=== PATIENT | male | born 1945 | race Caucasian/White ===

== ENCOUNTER 2016-05-05 13:24 | Emergency (ER) | payer OTHER ==
[2016-05-05 13:54] VITALS: RESP 16; TEMP 97.3
--- NOTE | 2016-05-05 14:08 | CPEKG ---
Heart Rate: 81 RR Interval: 741 P-R Interval: 168 QRSD Interval: 140 QT Interval: 400 QTC Interval: 465 P [place]: 37 QRS [place]: -63 T Wave [place]: 79 EKG Severity - ABNORMAL ECG - EKG Impression: ATRIAL-PACED COMPLEXES EKG Impression: LEFT ATRIAL ABNORMALITY EKG Impression: RIGHT BUNDLE BRANCH BLOCK EKG Impression: ANTEROLATERAL INFARCT, RECENT Electronically Signed By: Kerri Reinoso 05-May-2016 20:03:44
--- NOTE | 2016-05-05 14:25 | EDPHY ---
H & P Time Seen by Provider: 05/05/16 14:04 HPI/ROS: CHIEF COMPLAINT: I was in AFib HISTORY OF PRESENT ILLNESS: Patient is a 70-year-old male with a history of coronary artery disease, status post CABG x4 on 01/09/2016. He has had a history of intermittent atrial fibrillation in undergone ablation x2. Once for atrial fibrillation once for ventricular tachycardia. Patient feels as though he was in atrial fibrillation starting at around 3:00 p.m. yesterday. He felt a fluttering in his chest and mild discomfort. This persisted until he was checked in triage. At that time he states I came out of AFib. He has no complaints at this time. No chest pain or shortness of breath. No leg pain or swelling. He has been compliant with his medications. REVIEW OF SYSTEMS: My complete review of systems is negative except as mentioned in the HPI. Past Medical/Surgical History: Includes atrial fibrillation, ventricular tachycardia, coronary artery disease, dilated cardiomyopathy, left ventricular aneurysm, hyperlipidemia, hypertension , acute kidney injury Past surgical history: Includes ablation x2, CABG x4, AICD placement Social history: Patient is . He is here with his . The family history: Noncontributory Smoking Status: Former smoker Physical Exam: Vitals noted. 116/78, 97, 16. Repeat vital signs 123/85, 72, 16 GENERAL: Well-appearing, in no acute distress, alert. HEENT: Eyes normal to inspection, normal pharynx, no signs of dehydration. NECK: No thyromegaly, no lymphadenopathy, supple. RESPIRATORY: Clear to auscultation bilaterally, no rales, rhonchi or wheezing. CVS: Regular rate and rhythm, no rubs, murmurs, or gallops. ABDOMEN: Soft, nontender, nondistended, no organomegaly. BACK: Normal to inspection, no CVA tenderness. SKIN: Normal color, no rash, warm, dry. No pallor. EXTREMITIES: No pedal edema, no calf tenderness, no Homans sign or cords, no joint swelling. NEURO/PSYCH: Alert and oriented, normal mood and affect, normal motor sensory exam. No obvious cranial nerve deficit. Constitutional: Initial Vital Signs Temperature (C) 36.3 C 05/05/16 13:51 Heart Rate 97 05/05/16 13:51 Respiratory Rate 16 05/05/16 13:51 Blood Pressure 116/78 05/05/16 13:51 O2 Sat (%) 94 05/05/16 13:51 O2 Delivery Mode Room Air Allergies/Adverse Reactions: Penicillins Allergy (Severe, Verified 05/05/16 13:50) Anaphylaxis Home Medications: Medication Instructions Recorded Aspirin [Aspirin 81mg (*)] 81 mg PO DAILY 01/06/16 Cholecalciferol Vit D3 [Vitamin D3 1,000 units PO DAILY 01/06/16 (*)] Cyanocobalamin [Vitamin B12 (*)] 1,000 mcg PO DAILY 01/06/16 Herbals/Supplements -Info Only 1 ea PO DAILY 01/06/16 Multivitamins [Multivitamin (*)] 1 each PO DAILY 01/06/16 [place]-3 Fatty Acids/Fish Oil 1 each PO DAILY 01/06/16 [[place] 3 1,000 mg Softgel] Acetaminophen [Tylenol 325mg (*)] 325 - 650 mg PO Q4HRS PRN #0 tab 01/17/16 Furosemide [Lasix 80 MG (*)] 80 mg PO BID@0900,1500 #60 tab 01/17/16 Metoprolol Succinate Xr [Toprol Xl 50 mg PO DAILY #30 tab 01/17/16 50 mg (*)] Potassium Cl [Klor-Con 20 meq (*)] 20 meq PO BID #60 tab 01/17/16 Warfarin Sodium 2.5 mg PO DAILY AT 4PM #60 tablet 01/17/16 Medical Decision Making ED Course/Re-evaluation: In the emergency department I discussed possible etiologies with the patient. I answered all his questions. I reviewed the patient's previous medical records. I paged Dr. Norwood. [employer] was called to interrogate the patient' s pacer/AICD. Laboratory studies and EKG were ordered. EKG: Atrial paced complexes at 81. Right bundle branch block. I again paged Dr. Alex Norwood. I attempted to call his cell phone [phone]. I also called [phone]. The patient had elevated D-dimer. Patient was also noted to have an elevated troponin. I discussed these results with the patient and answered all his questions. CT angiogram was ordered. Still awaiting interrogation of the patient's pacer/AICD I subsequently spoke with Dr. Kiana clay on-call for Dr. Norwood. She agrees with the plan for admission. 1500: I discussed case with Dr. Gutiérrez. He agrees to admit the patient. Patient is aware the plan. CT angiogram of the chest: Please refer the dictated report by Dr. Sarath Vega. No acute disease noted. I discussed the results with the patient. I answered all his questions. On recheck the patient had no complaints. No chest pain or shortness of breath. 17 30: I discussed case with Dr. Norwood. He came to the emergency department and evaluated the patient. He assumed care. He discharged the patient from the emergency department. He requested that I DC the patient from the [employer] system. This was completed. Patient is aware the plan. The patient was given warnings prior to leaving. Differential Diagnosis: My differential includes but is not limited to ACS, acute MT, atrial fibrillation, ventricular tachycardia, pulmonary embolus, electrolyte abnormality, sugar abnormality, cardiomyopathy, dissection, aneurysm - Data Points Laboratory Results: Laboratory Results 05/05/16 14:28 05/05/16 14:28 05/05/16 14:28 WBC 8.60 10^3/uL (3.80-9.50) RBC 5.03 10^6/uL (4.40-6.38) Hgb 14.4 g/dL (13.7-17.5) Hct 43.6 % (40.0-51.0) MCV 86.7 fL (81.5-99.8) MCH 28.6 pg (27.9-34.1) MCHC 33.0 g/dL (32.4-36.7) RDW 16.4 H % (11.5-15.2) Plt Count 252 10^3/uL (150-400) MPV 9.2 fL (8.7-11.7) Neut % (Auto) 66.0 % (39.3-74.2) Lymph % (Auto) 22.6 % (15.0-45.0) [place]ner % (Auto) 8.8 % (4.5-13.0) Eos % (Auto) 2.0 % (0.6-7.6) Baso % (Auto) 0.3 % (0.3-1.7) Nucleat RBC Rel Count 0.0 % (0.0-0.2) Absolute Neuts (auto) 5.67 10^3/uL (1.70-6.50) Absolute Lymphs (auto) 1.94 10^3/uL (1.00-3.00) Absolute Monos (auto) 0.76 10^3/uL (0.30-0.80) Absolute Eos (auto) 0.17 10^3/uL (0.03-0.40) Absolute Basos (auto) 0.03 10^3/uL (0.02-0.10) Absolute Nucleated RBC 0.00 10^3/uL (0-0.01) Immature Gran % 0.3 % (0.0-1.1) Immature Gran # 0.03 10^3/uL (0.00-0.10) PT 24.5 H SEC (12.0-15.0) INR 2.19 H (0.83-1.16) APTT 37.1 SEC (23.0-38.0) D-Dimer 0.74 H ug/mLFEU (0.00-0.50) Sodium 142 mEq/L (134-144) Potassium 4.9 mEq/L (3.5-5.2) Chloride 108 mEq/L (97-110) Carbon Dioxide 26 mEq/l (22-31) Anion Gap 8 mEq/L (8-16) BUN 14 mg/dL (7-23) Creatinine 1.0 mg/dL (0.7-1.3) Estimated GFR > 60 Glucose 117 H mg/dL (70-100) Calcium 9.0 mg/dL (8.5-10.4) Troponin I 0.160 H ng/mL (0-0.034) NT-Pro-B Natriuret Pep Pending Departure - Departure Disposition: Home, Routine, Self-Care Clinical Impression: Elevated troponin Atrial fibrillation Qualifiers: Atrial fibrillation type: paroxysmal Qualifier Code: (I48.0) Paroxysmal atrial fibrillation Chest pain Qualifiers: Chest pain type: other chest pain Qualifier Code: (R07.89) Other chest pain Condition: Good
[2016-05-05 14:34] LABS: % IMMATURE GRANULYOCYTES 0.3 % (0.0-1.1); ABSOLUTE IMMATURE GRANULOCYTES 0.03 10^3/uL (0.00-0.10); ADD DIFF? NO; ADD MORPH? NO; ADD SCAN? NO; ATYPICAL LYMPHOCYTE FLAG 10 (0-99); FRAGMENT RBC FLAG 0 (0-99); HEMATOCRIT 43.6 % (40.0-51.0); HEMOGLOBIN 14.4 g/dL (13.7-17.5); LEFT SHIFT FLG 0 (0-99); LIPEMIA HEMOLYSIS FLAG 80 (0-99); MEAN CELL HEMOGLOBIN 28.6 pg (27.9-34.1); MEAN CELL VOLUME 86.7 fL (81.5-99.8); MEAN PLATELET VOLUME 9.2 fL (8.7-11.7); PLATELET CLUMPS FLAG 30 (0-99); PLATELET COUNT 252 10^3/uL (150-400); RED BLOOD CELL COUNT 5.03 10^6/uL (4.40-6.38); RED CELL DISTRIBUTION WIDTH 16.4 % (11.5-15.2)
[2016-05-05 14:50] LABS: ANION GAP 8 mEq/L (8-16); CARBON DIOXIDE 26 mEq/l (22-31); CHLORIDE 108 mEq/L (97-110); GLOMERULAR FILTRATION RATE > 60; GLUCOSE 117 mg/dL (70-100); POTASSIUM 4.9 mEq/L (3.5-5.2); SODIUM 142 mEq/L (134-144)
[2016-05-05] MEDS ORDERED: IOPAMIDOL (ISOVUE 370) 100 ML BTL IV ONE (15:40)
--- NOTE | 2016-05-05 16:21 | CT ---
Chest CTA With IV Contrast History: Dyspnea, atrial fibrillation, elevated d-dimer, history of CABG surgery and ablation x2, for steve cigarette smoker. Technique: Ultrafast ultrathin [address] obtained through the chest after bolus administra tion of 90 mL of Isovue 370 nonionic contrast without complication. Soft tissue and bone window evalu ation is performed. Dose reduction techniques were utilized. CT Chest: Findings: There is no evidence of pneumonia, pleural effusion, mass or pneumothorax. The heart is enl arged without pulmonary vascular plethora or pericardial effusion. There is coronary artery disease. A left chest wall pacer device and associated bipolar pacer leads along with an epicardial lead impla nted along the posterior wall of the upper left ventricle are present. Left atrial appendage clip is present. No thrombus is identified in the left atrium or elsewhere in the cardiac chambers. Unusual r adiopaque density overlies the epicardial low anterior wall and cardiac apex. This may represent a alcantara rgical patch. Many median sternotomy wires are present. Incidentally noted is a small subpleural rig ht lower lobe lateral calcified granuloma. CT Pulmonary Angiogram: Technique: Multiplanar and 3D reconstructions are reviewed on an independent 3D workstation. Findings: No filling defects or mural thickening is detected. Specifically, no evidence for pulmonary embolism. Right-sided heart chambers are not dilated and the interventricular septum has normal morp hology. Impression: No evidence for pulmonary embolic disease. Please see above. Results called and discussed with CLAUDINE CUEVAS, at 05/05/2016 16:19 General information for patients regarding this examination can be found at [email or web address]. If you have questions or comments about this report, please contact me at [phone] (hospital) or [phone] (cell).
[2016-05-05 16:29] VITALS: O2SAT 98
[2016-05-05 17:17] LABS: INR 2.19 (0.83-1.16); PROTIME(PATIENT) 24.5 SEC (12.0-15.0)
[2016-05-05 17:18] LABS: APTT 37.1 SEC (23.0-38.0)
--- NOTE | 2016-05-05 17:33 | SOAPPROG ---
[facility] Progress Note Assessment/Plan: Assessment: 1. Prolonged episode of atrial flutter spontaneously converted to sinus rhythm after approximately 22 hours. This was associated with chest pain and shortness of breath. 2. Mild troponin elevation likely related to prolonged tachycardia. 3. Ischemic cardiomyopathy status post aneurysmectomy. Class 2 congestive heart failure. 4. Coronary artery disease status post bypass surgery 5. History of atrial fibrillation. Now status post right and left atrial Maze procedure 6. Status post left atrial appendage closure 7. History of ventricular tachycardia. None since aneurysm ectomy. Defibrillator in place. 8. Chronic warfarin anticoagulation 9. Elevated D-dimer with negative CT pulmonary angiogram Plan: Patient now feels back to normal and requests that he not be admitted to the hospital. This was discussed with Dr. Gutiérrez and Dr. Reinoso patient will be discharged. I have given a prescription for amiodarone 200 mg. Sixty tablets no refills. He is to take 2 p. o. twice daily p.r.n. for recurrent tachycardia. Ultimately, for significant recurrences of atrial flutter electrophysiologic consultation and ablation will be recommended. Further follow-up in my office. It is unclear to me whether he has had echocardiogram since discharge from surgery. This likely should be considered. We also should consider nuclear imaging stress test given his troponin elevation although he has not had angina except during this episode of tachycardia. He is to continue all other medication. I have instructed the patient to contact our office if he needs to take amiodarone. This will also require further modification of his warfarin dosing if he is on amiodarone on a regular basis. 05/05/16 17:29 Objective: Vital Signs Temp Pulse Resp BP Pulse Ox 97.3 F 69 16 129/79 H 98 05/05/16 13:51 05/05/16 16:28 05/05/16 16:28 05/05/16 16:28 05/05/16 16:28 PT 24.5 SEC (12.0-15.0) H 05/05/16 14:28 INR 2.19 (0.83-1.16) H 05/05/16 14:28 ICD10 Worksheet Patient Problems: Problems Problem Status Diagnosed Atrial fibrillation Acute Chest pain Acute Elevated troponin Acute LISA (acute kidney injury) Acute Near syncope Acute S/P CABG x 4 Acute S/P ICD (internal cardiac defibrillator) procedure Acute S/P ablation of atrial fibrillation Acute S/P ablation of ventricular arrhythmia Acute Ventricular tachycardia Acute resection left ventricular aneurysm Acute ventricular epicardial lead placement Acute Carotid artery disease Chronic Dyslipidemia Chronic Ischemic cardiomyopathy Chronic Multi-vessel coronary artery stenosis Chronic PAF (paroxysmal atrial fibrillation) Chronic
[2016-05-05 17:59] VITALS: BP 135/75; PULSE 72
--- NOTE | 2016-05-05 20:34 | PDCONSULT ---
Tracing Lathe Set Up Operator Note: CONSULTATION HISTORY AND PHYSICAL CC: rapid palpitations HISTORY: This gentleman has history of heart disease including arrhythmias, and bypass surgery in December. Prior to his bypass surgery he had had some ventricular tachycardia as well as atrial fibrillation. During his surgery he had a AFib ablation procedure. He also had placement of a pacemaker/AICD. He has had several episodes of palpitations that are irregular without chest pain shortness of breath or lightheadedness including a 22 hour episode that started yesterday and terminated as he arrived at the emergency room today. He has not had a discharge of his AICD device for any of these episodes. Last night he did have some mild chest discomfort during these rapid palpitations but has not otherwise felt anginal, and has not had any limitation of his exercise capacity based on all of this. 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 MEDICATIONS: I reviewed his list of medications which were detailed in the electronic health record and do include anticoagulation PHYSICAL EXAMINATION: Vital Signs: currently all normal vital signs with no fever Lobby Concierge: sinus rhythm Examination: General: alert, oriented, good mentation, relaxed Skin: warm, dry, good color, no rash HEENT: normal Neck: no mass or jvd Resps: relaxed Lungs: clear breath sounds Heart: regular, no murmur Abdomen: soft, nondistended, nontender, +BS, no mass Upper Extremities: normal Lower Extremities: no edema, warm No Bleeding or bruising Neurologic: normal speech/language, normal culinary intern, no focal weakness IV site: looks normal LABORATORY DATA: I reviewed in detail Troponin of 0.1 is consistent with his prolonged episode of rapid tachycardia and is not felt to be an acute coronary syndrome D-dimer is elevated, though he does not have significant symptoms suggestive of PE BNP is a bit elevated RADIOLOGY STUDIES: CT scan of chest with angiogram, I reviewed the images in detail, my interpretation: No evidence of PE, heart failure, pneumonia, or other concerning acute abnormality 12 lead EKG, my interpretation of the tracing: Nothing in the way of arrhythmia or ischemia I reviewed the patient's pacemaker interrogation done in the ER today with Dr. Alex Norwood. There is rapid atrial fibrillation at 2 1 heart rates of 150 yesterday and today as well as couple of prior episodes. There is no ventricular arrhythmia and is pacer is otherwise functioning normally ASSESSMENT: # Atrial flutter with rapid ventricular response at 2 1 # Normal function of his pacemaker /AICD # Status post recent bypass surgery, no evidence of cardiac ischemia or heart failure at this time I discussed case in detail with the patient, his and with Dr. Norwood. At this point the patient is having some atrial flutter but is tolerating it quite well. He is already anticoagulated so I am not worried about stroke prevention. It would be good at this point to either improve his rate control or to try to keep him out of atrial fibrillation and flutter. He did have a surgical ablation procedure which clearly is not preventing the flutter. Options were could include adding increased rate control medicine in the way of more beta-sam, resuming amiodarone which he has tolerated well in the past, and/or considering EP based ablation procedure. Dr. Norwood is going to review the patient's previous echocardiograms and other data to make a decision about which of these approaches to recommended the patient at this time. Do not think the patient requires admission to the hospital as he is really quite stable overall. He can follow up with Dr. Tijerina in the clinic over the next week and if necessary required for referred to Dr. Sin I have reviewed the patient's case in detail with Dr. Alex Norwood I
== END 2016-05-05 17:58 | disposition home or self-care (01) ==
LOC: UNDOADMOB 15:18
DX: I48.0 Paroxysmal atrial fibrillation (principal); R79.89 Other specified abnormal findings of blood chemistry; I25.810 Atherosclerosis of coronary artery bypass graft(s) without angina pectoris; I10 Essential (primary) hypertension; Z79.01 Long term (current) use of anticoagulants; Z87.891 Personal history of nicotine dependence; Z79.82 Long term (current) use of aspirin
CPT/HCPCS: Q9967

== ENCOUNTER 2016-11-10 12:49 | Emergency (ER) | payer OTHER ==
--- NOTE | 2016-11-10 13:27 | CPEKG ---
Heart Rate: 145 RR Interval: 414 QRSD Interval: 146 QT Interval: 352 QTC Interval: 547 QRS [place]: -48 T Wave [place]: 99 EKG Severity - ABNORMAL ECG - EKG Impression: ATRIAL FIBRILLATION, V-RATE 102-169 EKG Impression: RIGHT BUNDLE BRANCH BLOCK EKG Impression: ANTEROLATERAL INFARCT, AGE INDETERMINATE Electronically Signed By: Kemar Cobos 10-Nov-2016 12:30:25
[2016-11-10] MEDS ORDERED: DILTIAZEM 125 MG in D5W 125 ML IV ONE (13:42)
[2016-11-10] MEDS ORDERED: NS 500 ML IV ONE (13:42)
[2016-11-10] MEDS ORDERED: DILTIAZEM 25 MG/5 ML VIAL IVP ONE (13:43)
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
[2016-11-10 13:51] LABS: % IMMATURE GRANULYOCYTES 0.5 % (0.0-1.1); ABSOLUTE IMMATURE GRANULOCYTES 0.05 10^3/uL (0.00-0.10); ADD DIFF? NO; ADD MORPH? NO; ADD SCAN? NO; ATYPICAL LYMPHOCYTE FLAG 20 (0-99); FRAGMENT RBC FLAG 0 (0-99); HEMATOCRIT 48.8 % (40.0-51.0); LEFT SHIFT FLG 0 (0-99); LIPEMIA HEMOLYSIS FLAG 80 (0-99); MEAN CELL HEMOGLOBIN 29.1 pg (27.9-34.1); MEAN CELL HEMOGLOBIN CONCENTR. 32.8 g/dL (32.4-36.7); MEAN CELL VOLUME 88.9 fL (81.5-99.8); MEAN PLATELET VOLUME 9.4 fL (8.7-11.7); PLATELET CLUMPS FLAG 0 (0-99); PLATELET COUNT 211 10^3/uL (150-400); RED BLOOD CELL COUNT 5.49 10^6/uL (4.40-6.38); RED CELL DISTRIBUTION WIDTH 15.5 % (11.5-15.2)
[2016-11-10 13:57] LABS: APTT 48.3 SEC (23.0-38.0); INR 3.11 (0.83-1.16); PROTIME(PATIENT) 32.5 SEC (12.0-15.0)
[2016-11-10 14:05] LABS: ANION GAP 13 mEq/L (8-16); CARBON DIOXIDE 24 mEq/l (22-31); CHLORIDE 102 mEq/L (97-110); CREATININE 1.3 mg/dL (0.7-1.3); GLOMERULAR FILTRATION RATE 55; GLUCOSE 155 mg/dL (70-100); POTASSIUM 4.3 mEq/L (3.5-5.2); SODIUM 139 mEq/L (134-144)
[2016-11-10 14:16] LABS: TROPONIN I 0.015 ng/mL (0.000-0.034)
[2016-11-10 14:45] VITALS: RESP 16
[2016-11-10 16:07] VITALS: PULSE 75; O2SAT 96
[2016-11-10 17:05] VITALS: BP 112/69; TEMP 97.9
== END 2016-11-10 17:11 | disposition short-term general hospital (02) ==
DX: I48.0 Paroxysmal atrial fibrillation (principal); Z79.01 Long term (current) use of anticoagulants; Z79.82 Long term (current) use of aspirin; Z87.891 Personal history of nicotine dependence; Z95.1 Presence of aortocoronary bypass graft; Z95.5 Presence of coronary angioplasty implant and graft
CPT/HCPCS: 96374